=== PATIENT | male | born 1935 | race Caucasian/White ===

== ENCOUNTER → 2016-05-20 | Outpatient (CLI) | payer MEDICARE, MEDICAID | END | disposition home or self-care (01) | LOC: RAD 10:08 | DX: J44.9 Chronic obstructive pulmonary disease, unspecified (principal); R76.11 Nonspecific reaction to tuberculin skin test without active tuberculosis; I50.9 Heart failure, unspecified; I10 Essential (primary) hypertension; J98.11 Atelectasis | CPT/HCPCS: 71020 ==